=== PATIENT | female | born 1985 | race Caucasian/White ===

== ENCOUNTER 2022-09-15 11:28 | Outpatient (CLI) | payer BC, SELFPAY ==
--- NOTE | ~2022-09-15 | XR_ITS ---
XR abdomen/kub 1V 09/15/2022 11:53 INDICATION: Change in bowel habits passed 6 months. TECHNIQUE: KUB COMPARISON: None FINDINGS: Bowel gas pattern is normal. There is no evidence of free air, mass, organomegaly, ascites or obstruction. No abnormal calculi are seen. The bones appear intact. There is an IUD present in the pelvis. There are pelvic phleboliths. IMPRESSION: 1: No acute abdominal abnormality identified. Reviewed, dictated and finalized at location A. RTMENT COORDINATOR
== END 2022-09-15 11:29 | disposition home or self-care (01) ==
PROVIDERS: PCP Internal Medicine; Visit Provider Nurse Practitioner Family
DX: R19.4 Change in bowel habit (principal)
CPT/HCPCS: 74018

== ENCOUNTER 2022-09-24 17:24 | Outpatient (CLI) | payer BC, SELFPAY ==
[2022-09-24 17:46] LABS: Add Urine Microscopic? NO; Appearance Urine Clear (Clear); Bilirubin Urine Negative (Negative); Blood Urine Negative (Negative); Color Urine Yellow (Yellow); Glucose Urine UA Negative (Negative); Ketones Urine Negative (Negative); Leukocyte Esterase Ur Negative LEU/UL (NEGATIVE); Nitrate Urine Negative (Negative); Protein Urine Negative (Negative); Urobilinogen Urine 0.2 mg/dL (<2.0); pH Urine 5.5 (5.0-9.0)
== END 2022-09-24 17:25 | disposition home or self-care (01) ==
PROVIDERS: PCP Internal Medicine; Visit Provider Nurse Practitioner Family
DX: K92.89 Other specified diseases of the digestive system (principal)
CPT/HCPCS: 81003

== ENCOUNTER 2022-10-19 01:41 | Day surgery (SDC) | payer BC, SELFPAY ==
[2022-10-07 12:26] VITALS: BMI 25.2
[2022-10-19 07:27] VITALS: BP 117/65; PULSE 65; RESP 18; TEMP 36.2; O2SAT 99
[2022-10-19] MEDS: LACTATED RINGERS 1,000 ML 150 ML IV CONT (07:36)
--- NOTE | 2022-10-19 07:56 | P.PNAN_ITS ---
Anes - Initial Pre Proc Eval Procedure: Operation Date: 10/19/22 08:30 Proposed Procedures p Colonoscopy - Anjel Heck MD Date/Time: 10/19/22 07:56 Surgeon: Anjel Heck MD Pre Op Diagnosis: change in consistency of stools Patient Data Age: 37 Gender: F Height: 1.8 m Weight: 83.2 kg Last Vital Signs Temp 97.1 F L 10/19/22 07:27 Pulse 65 10/19/22 07:27 Resp 18 10/19/22 07:27 BP 117/65 10/19/22 07:27 Pulse Ox 99 10/19/22 07:27 O2 Del Method Room Air 10/19/22 07:27 Allergies Allergy/AdvReac Type Severity Reaction Status Date / Time Penicillins Allergy Unknown Hives Verified 10/19/22 07:26 Home Medications Medication Instructions Recorded Confirmed Type escitalopram oxalate 10 mg tablet 10 mg PO DAILY 09/15/22 10/07/22 History Patient hx anesthesia problems: none Family hx anesthesia problems: none Results Review: All pre-operative results and documents have been reviewed as part of the pre- operative evaluation. 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 Hx of dislocation of wrist Mucus in stool Surgical History Surgical History History of hip surgery Family History Family History Mother Patient's mother is in good health Father Patient's father is in good health Sibling Patient's sister is in good health Patient's brother is in good health Grandparent Cerebrovascular accident Family history of chronic obstructive pulmonary disease Family history unknown Family history of type 2 diabetes mellitus Social History Social History (Updated 09/15/22 @ 11:52 by KRZYSZTOF Ballard) Smoking status: Never smoker Second hand tobacco smoke exposure: No Alcohol intake: current Alcohol use details: social Substance use: never Substance use type: does not use Living arrangements: with family Spiritual care concerns: No Anes - Eval Final PreProcedure Day of Procedure 10/19/22 07:56 Patient weight: normal Heart: regular rate and rhythm Lungs: clear to auscultation Airway: Mallampati scale class II Neurological: alert and oriented Last oral intake: >/= 8 hours ASA classification: II Emergent: no Anesthetic plan: proceed Anesthesia type and monitoring: general GIVS and standard monitoring Results Review: All pre-operative results and documents have been reviewed as part of the pre- operative evaluation. Informed Consent: The patient's anesthetic plan and its attendant risks and benefits were discussed with the patient/family/POA. Questions were solicited and answers provided to the satisfaction of the patient/family/POA.
--- NOTE | 2022-10-19 08:34 | PM.HPGS ---
History of Present Illness History of Present Illness Consent: Risks, benefits, and alternatives have been discussed and questions answered. Patient agrees to proceed with procedure. Chief complaint: change in consistency of stools Narrative: Shelbie Hernandez is a 37 year old female with several months of loose stools and mucus, never had colonoscopy Review of Systems Constitutional: Constitutional: Denies headache(s) and Denies weakness Eyes: Eyes: Denies blurry vision ENT: Reports Normal hearing present, Denies headache(s) and Denies neck pain Cardiovascular: Cardiovascular: Denies chest pain and Denies dyspnea Respiratory: Respiratory: Denies dyspnea Gastrointestinal: Gastrointestinal: Reports no additional gastrointestinal complaints Genitourinary: Genitourinary: Denies dysuria Musculoskeletal: Musculoskeletal: Denies neck pain Integumentary/Breasts: Skin/Breast: Denies dry skin Neurologic: Reports Normal hearing present, Denies headache(s) and Denies weakness Psychiatric: Psychiatric: Denies anxiety Endocrine: Endocrine: Denies change in body appearance Hematologic/Lymphatic: Hematologic/Lymphatic: Denies easy bleeding Allergic/Immunologic: Allergic/Immunologic: Denies urticaria PMFSH Past Medical History Medical History (Updated 09/15/22 @ 11:43 by KRZYSZTOF Ballard) 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 Hx of dislocation of wrist Mucus in stool Surgical History Surgical History History of hip surgery Family History Family History Mother Patient's mother is in good health Father Patient's father is in good health Sibling Patient's sister is in good health Patient's brother is in good health Grandparent Cerebrovascular accident Family history of chronic obstructive pulmonary disease Family history unknown Family history of type 2 diabetes mellitus Social History Social History (Updated 09/15/22 @ 11:52 by KRZYSZTOF Ballard) Smoking status: Never smoker Second hand tobacco smoke exposure: No Alcohol intake: current Alcohol use details: social Substance use: never Substance use type: does not use Living arrangements: with family Spiritual care concerns: No Meds Home Medications and Allergies Home Medications Medication Instructions Recorded Confirmed Type escitalopram oxalate 10 mg tablet 10 mg PO DAILY 09/15/22 10/07/22 History Allergies Allergy/AdvReac Type Severity Reaction Status Date / Time Penicillins Allergy Unknown Hives Verified 10/19/22 07:26 Vital Signs Vital Signs - 24 hr 10/19/22 07:27 Temperature 97.1 F L Pulse Rate 65 Respiratory Rate 18 Blood Pressure 117/65 Pulse Oximetry 99 Oxygen Delivery Room Air Exam Const: General: comfortable and no acute distress HENMT: Face/Nose/Sinus: Normal nares present Eyes: General: appearance normal, both eyes and all related structures Neck: Neck: no JVD Resp: Auscultation: clear to auscultation bilaterally Cardio: Rate: regular rate Rhythm: regular rhythm GI: Inspection: non-distended GI Palp: Yes Soft to palpation Skin: General skin exam: normal color Neuro: General: gait normal Speech: normal speech Extrem: General: normal to inspection Psych: Mental Status: mental status grossly normal Assessment and Plan Assessment and plan (1) Mucus in stool: Code(s): R19.5 - Other fecal abnormalities Status: Acute Assessment and Plan: colonoscopy (2) Change in bowel habits: Code(s): R19.4 - Change in bowel habit Status: Acute
[2022-10-19 08:57] VITALS: BP 90/52; PULSE 63; RESP 18; O2SAT 100
[2022-10-19 09:07] VITALS: BP 103/64; PULSE 53; RESP 19; O2SAT 100
[2022-10-19 09:17] VITALS: BP 106/60; PULSE 51; RESP 22; O2SAT 100
== END 2022-10-19 09:25 | disposition home or self-care (01) ==
PROVIDERS: PCP Internal Medicine; Visit Provider Internal Medicine Gastroenterology
PROC: 0DJD8ZZ Inspection of Lower Intestinal Tract, Via Natural or Artificial Opening Endoscopic (ICD-10-PCS; CPT 45378; principal; 2022-10-19 08:30)
DX: R19.7 Diarrhea, unspecified (principal); K57.30 Diverticulosis of large intestine without perforation or abscess without bleeding
CPT/HCPCS: 45380; 88305; J2704; J7120

== ENCOUNTER 2024-04-13 16:05 | Emergency (ER) | payer BC, SELFPAY ==
[2024-04-13] VITALS (8 sets, daily range): BP systolic 117–136; BP diastolic 69–81; PULSE 57–85; RESP 14–18; TEMP 36.5–36.6; O2SAT 100
--- NOTE | ~2024-04-13 | CT_ITS ---
CT abdomen pelvis wo con Ordering provider: Liliam Hood History: 39 years Female with . low back pain, uti sxs . Comparison: None. Technique: CT abdomen and pelvis without IV and without oral contrast. Automated exposure control and iterative reconstruction technique were employed. The dose-length product was 493.63 mGy-cm. Findings: VISUALIZED LOWER CHEST: Dependent atelectatic changes. UPPER ABDOMINAL ORGANS: Liver: Normal. Gallbladder: Normal. Spleen: Cyst is seen in the spleen measuring 7 x 7.1 cm. Calcification seen in the wall. Abscess is l ess likely. Stomach/duodenum: Normal. Pancreas: Normal. Adrenals: Normal. Kidneys: Tiny stone in the left kidney lower pole. PELVIC ORGANS: The bladder is slightly underfilled with thickened wall. Uterus: Normal. BOWEL AND MESENTERY: Colon: No evidence of diverticulitis. Fecal material is seen in the colon suggestive of patient. No e vidence of appendicitis seen. Soft tissue density seen anterior to the sacrum which may be inflammatory and measures 1.3 x3.7 x 4.3 cm. Follow-up advised. Small Bowel: Normal. No obstruction. Peritoneum/mesentery: No free air or free fluid. No mesenteric lymphadenopathy. RETROPERITONEUM: Normal aorta. No retroperitoneal lymphadenopathy. MUSCULOSKELETAL: Superficial soft tissues: The superficial soft tissues are normal. Bones: Normal spine. Disc bulges are seen at the levels of L3-L4, L4-5 and L5 1. Sclerotic lesion in the left iliac bone is noted most likely a bone island IMPRESSION: 1. Large Splenic cyst. Follow-up advised. 2. Presacral soft tissue density which may be inflammatory versus hematoma versus lymphatic tissue.. Follow-up advised. 3. Constipation. 4. Slightly thickened wall of the urinary bladder. Clinical evaluation for cystitis advised. 5. Tiny stone in the left kidney lower pole. 6. Multilevel disc bulges. Reviewed, dictated and finalized at location A. IMPRESSION: 1. Large Splenic cyst. Follow-up advised. 2. Presacral soft tissue density which may be inflammatory versus hematoma nazanin cheyanne lymphatic tissue.. Follow-up advised. 3. Constipation. 4. Slightly thickened wall of the urinary bladder. Clinical evaluation for cys titis advised. 5. Tiny stone in the left kidney lower pole. 6. Multilevel disc bulges.
--- NOTE | 2024-04-13 16:57 | ED.FEMALEGU ---
HPI - Female Genitourinary General Chief complaint: Urogenital-Female <Liliam Hood PA-C - Last Filed: 04/13/24 17:03> Stated complaint: UTI symptoms, being treated currently <Liliam Hood PA-C - Last Filed: 04/13/24 17:03> Time Seen by Provider: 04/13/24 16:57 <BRIE Fraser Last Filed: 04/13/24 17:03> Focused HPI: patient is a 39-year-old female who presents the ED with report of UTI symptoms. Patient reports she was diagnosed with UTI per her primary care doctor and has been on ciprofloxacin 500 mg b.i.d. for the last 3.5 days. She reports the hematuria and dysuria has improved, but she is now having worsening pain throughout her lower back. Pain is worse on the right side. Reports lower abdominal discomfort. Reports nausea, denies vomiting, fevers. States she overall feels unwell and fatigued. GENERAL: Well-appearing, well-nourished, and in no acute distress. HEAD: Normocephalic, atraumatic. CHEST: Clear to auscultation. ?No respiratory distress. HEART: Regular rate and rhythm.? ABD: No significant tenderness. Mild tenderness to palpation throughout R CVA region. NEURO: ?Alert and oriented x3. Patient screened in triage and initial orders placed.? ?Additional care and disposition to be based upon?diagnostic testing and treatment. <Liliam Hood PA-C - Last Filed: 04/13/24 17:03> Source: patient <Liliam Hood PA-C - Last Filed: 04/13/24 17:03> Mode of arrival: ambulatory <Liliam Hood PA-C - Last Filed: 04/13/24 17:03> Limitations: no limitations <BRIE Fraser Last Filed: 04/13/24 17:03> History of Present Illness HPI Narrative: I agree with the assessment and documentation by Liliam Hood PA-C. <Ruhty Chin APRN - Last Filed: 04/13/24 23:50> Related Data Home medications: Home Medications Medication Instructions Recorded Confirmed escitalopram oxalate 10 mg tablet 10 mg PO DAILY 09/15/22 10/07/22 <BRIE Fraser Last Filed: 04/13/24 17:03> Allergies/Adverse reactions: Allergies Allergy/AdvReac Type Severity Reaction Status Date / Time Penicillins Allergy Unknown Hives Verified 04/13/24 16:06 <Liliam Hood PA-C - Last Filed: 04/13/24 17:03> Review of Systems Review of Systems: All systems reviewed & are unremarkable except as noted in HPI and below <Ruthy Chin APRN - Last Filed: 04/13/24 23:50> [facility] Past Medical History Medical History: Medical History 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 Hx of dislocation of wrist Mucus in stool <BRIE Fraser Last Filed: 04/13/24 17:03> Surgical History Surgical History: Surgical History History of hip surgery <BRIE Fraser Last Filed: 04/13/24 17:03> Family History Family History: Family History Mother Patient's mother is in good health Father Patient's father is in good health Sibling Patient's sister is in good health Patient's brother is in good health Grandparent Cerebrovascular accident Family history of chronic obstructive pulmonary disease Family history unknown Family history of type 2 diabetes mellitus <BRIE Fraser Last Filed: 04/13/24 17:03> Social History Social History: Social History Smoking status: Never smoker Second hand tobacco smoke exposure: No Alcohol intake: current Alcohol use details: social Substance use: never Substance use type: does not use Living arrangements: with family Spiritual care concerns: No <BRIE Fraser Last Filed: 04/13/24 17:03> Exam Narrative: GENERAL: Well-appearing, well-n
[2024-04-13 17:38] LABS: Add Urine Microscopic? YES; Appearance Urine Clear (Clear); Bacteria Urine None Seen /hpf; Bilirubin Urine Negative (Negative); Blood Urine Negative (Negative); Color Urine Yellow (Yellow); Glucose Urine UA Negative (Negative); Ketones Urine Negative (Negative); Leukocyte Esterase Ur Trace LEU/UL (Negative); Need Manual Microscopic Reviewed; Nitrate Urine Negative (Negative); Non Pathogenic Casts 0-2; Protein Urine Negative (Negative); RBC Urine 0-2 /hpf (0-2); Specific Grav Ur 1.003 (1.001-1.035); Squamous Epithelial Cell Urine None Seen /hpf (Few); Urobilinogen Urine 0.2 mg/dL (<2.0); WBC Urine 0-5 /hpf (0-3); pH Urine 5.5 (5.0-9.0)
[2024-04-13] MEDS: SODIUM CHLORIDE 0.9% IV 1,000 ML 999 ML IV CONT (17:44)
[2024-04-13 17:52] LABS: Basophils Percent Auto 0.4 % (0.2-1.2); Eosinophils Absolute Auto 0.1 K/mm3 (0-0.3); Eosinophils Percent Auto 1.6 % (0-4.4); Hematocrit 42.9 % (37.0-47.0); Hemoglobin 14.4 g/dL (12.0-15.0); Immature Granulocyte Absolute 0.02 K/mm3 (0.00-0.031); Immature Granulocyte Percent A 0.3 % (0-0.5); Lymphocytes Absolute Auto 1.78 K/mm3 (0.9-3.2); Lymphocytes Percent Auto 24.3 % (18.3-44.2); Mean Corpuscular HGB Conc 33.6 g/dl (32-36); Mean Corpuscular Hemoglobin 30.6 pg (26-34); Mean Corpuscular Volume 91.1 fl (80-100); Mean Platelet Volume 9.8 fl (7.4-10.4); Monocytes Absolute Auto 0.3 K/mm3 (0.1-0.6); Monocytes Percent Auto 4.2 % (2.6-8.5); Neutrophils Absolute Auto 5.1 K/mm3 (1.3-6.7); Neutrophils Percent Auto 69.2 % (45.5-73.1); Platelet Count Result 210 k/mm3 (150-375); Red Blood Count 4.71 M/mm3 (4.2-5.4); Red Cell Distribution Width 12.6 % (11.5-14.5); White Blood Count 7.3 K/mm3 (4.5-10.0)
[2024-04-13 18:04] LABS: Alanine Aminotransferase 27 U/L (6-35); Albumin Level 4.3 g/dL (3.5-5.1); Alkaline Phosphatase 73 U/L (38-126); Anion Gap 7 mmol/L (4-12); Aspartate Amino Transferase 47 U/L (14-36); Bilirubin,Total 0.2 mg/dL (0.2-1.3); Blood Urea Nitrogen 18 mg/dL (7-17); Carbon Dioxide 30 mmol/L (22-30); Chloride 99 mmol/L (98-107); Estimated CRCL calculation 83 ml/min; Estimated Glomerular Filt Rate > 60; Glucose 91 mg/dL (65-110); Potassium 3.8 mmol/L (3.4-5.0); Sodium 136 mmol/L (137-145)
== END 2024-04-14 00:12 | disposition home or self-care (01) ==
PROVIDERS: Physician Assistant; Emergency Provider Registered Nurse; PCP Internal Medicine
DX: D73.4 Cyst of spleen (principal); K59.00 Constipation, unspecified; M54.50 Low back pain, unspecified
CPT/HCPCS: 36415; 74176; 80053; 81001; 84443; 85025; 96360; 99284; J7030

== ENCOUNTER 2024-06-27 16:24 | Emergency (ER) | payer BC, SELFPAY ==
--- NOTE | ~2024-06-27 | US_ITS ---
EXAMINATION: US OB <= 14 weeks fetus DATE: 06/27/2024 18:39 INDICATION: Vaginal bleeding during 11 week TECHNIQUE: Real-time pelvic ultrasound utilizing both a transvaginal and transabdominal probe was pe rformed. The interpreting radiologist was not present for the study. COMPARISON: None. FINDINGS: The uterus measures 4.9 x 5.8 x 8.4 cm. There is an intrauterine gestational sac with single fetus. The crown rump length measures 2.7 cm, which correlates with an estimated gestational age of 9 weeks and 3 days which is discordant provided estimated gestational age of 11 weeks and 2 days. There is no evident heart on color or M-mode Doppler consistent with demise. The right ovary measures 4.4 x 1.1 x 2.0 cm. Vascular flow identified in the right ovary on color Dop pler. The left ovary is not visualized There is no free fluid in the pelvis. IMPRESSION: 1. Intrauterine gestational sac with single 2.7 cm fetus without evident heart motion consisten t with demise. Reviewed, dictated and finalized at location A. UTER TESTER IMPRESSION: 1. Intrauterine gestational sac with single 2.7 cm fetus without evident heart motion consistent with demise.
[2024-06-27 16:25] VITALS: BP 125/65; PULSE 67; RESP 18; TEMP 36.6; O2SAT 100
[2024-06-27 17:34] LABS: Basophils Percent Auto 0.4 % (0.2-1.2); Eosinophils Absolute Auto 0.1 K/mm3 (0-0.3); Eosinophils Percent Auto 1.8 % (0-4.4); Hematocrit 42.1 % (37.0-47.0); Immature Granulocyte Absolute 0.02 K/mm3 (0.00-0.031); Immature Granulocyte Percent A 0.3 % (0-0.5); Lymphocytes Absolute Auto 1.68 K/mm3 (0.9-3.2); Lymphocytes Percent Auto 23.7 % (18.3-44.2); Mean Corpuscular HGB Conc 33.3 g/dl (32-36); Mean Corpuscular Hemoglobin 30.4 pg (26-34); Mean Corpuscular Volume 91.5 fl (80-100); Monocytes Absolute Auto 0.3 K/mm3 (0.1-0.6); Monocytes Percent Auto 3.8 % (2.6-8.5); Platelet Count Result 192 k/mm3 (150-375); Red Cell Distribution Width 12.7 % (11.5-14.5); White Blood Count 7.1 K/mm3 (4.5-10.0)
--- NOTE | 2024-06-27 17:41 | PC.NURSE ---
unable to doppel FHR
[2024-06-27 17:43] LABS: Alanine Aminotransferase 21 U/L (6-35); Albumin Level 4.5 g/dL (3.5-5.1); Alkaline Phosphatase 63 U/L (38-126); Anion Gap 6 mmol/L (4-12); Aspartate Amino Transferase 29 U/L (14-36); Bilirubin,Total 0.3 mg/dL (0.2-1.3); Blood Urea Nitrogen 18 mg/dL (7-17); Calcium 8.9 mg/dL (8.4-10.2); Carbon Dioxide 27 mmol/L (22-30); Chloride 104 mmol/L (98-107); Estimated CRCL calculation 121 ml/min; Estimated Glomerular Filt Rate > 60; Glucose 90 mg/dL (65-110); Potassium 3.8 mmol/L (3.4-5.0); Sodium 137 mmol/L (137-145)
[2024-06-27 17:43] LABS: Prothrombin Time 13.9 Seconds (11.1-14.7)
[2024-06-27 17:44] LABS: Partial Thromboplastin Time 28.9 Seconds (22.3-36.8)
--- NOTE | 2024-06-27 18:37 | ED.PREGNANCY ---
HPI - General Chief complaint: Vaginal Bleeding Stated complaint: vaginal bleeding, cramping. 11 weeks Time Seen by Provider: 06/27/24 17:53 Source: patient Mode of arrival: ambulatory Limitations: no limitations History of Present Illness HPI Narrative: This is a 39-year-old female that presents to the emergency department for vaginal bleeding. She is currently about 11 weeks . Her OB is Dr. Moreno. She has had an ultrasound which showed intrauterine . She has had worsening bleeding and cramping since yesterday which prompted her to be seen. Related Data Home Medications Medication Instructions Recorded Confirmed escitalopram oxalate 10 mg tablet 10 mg PO DAILY 09/15/22 04/17/24 Allergies Allergy/AdvReac Type Severity Reaction Status Date / Time Penicillins Allergy Unknown Hives Verified 06/27/24 18:09 Review of Systems Review of Systems: CONSTITUTIONAL: Denies fever GASTROINTESTINAL: Reports pelvic cramping. 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 Hx of dislocation of wrist Mucus in stool Surgical History Surgical History History of hip surgery Family History Family History Mother Patient's mother is in good health Father Patient's father is in good health Sibling Patient's sister is in good health Patient's brother is in good health Grandparent Cerebrovascular accident Family history of chronic obstructive pulmonary disease Family history unknown Family history of type 2 diabetes mellitus Social History Social History Smoking status: Never smoker Second hand tobacco smoke exposure: No Alcohol intake: current Alcohol use details: social Substance use: never Substance use type: does not use Living arrangements: with family Spiritual care concerns: No Exam Narrative: GENERAL: Well-appearing, well-nourished, and in no acute distress. HEAD: Normocephalic, atraumatic. EYES: EOMI. CHEST: Clear to auscultation. No respiratory distress. No wheezes rales or rhonchi HEART: Regular rate and rhythm. No murmur heard. Normal peripheral pulses. EXTREMITIES: Normal range of motion. No edema. SKIN: Warm, dry, no rash. NEURO: No focal deficits. Alert and oriented x3. PSYCH: Normal mood and affect Course Course Emergency Course: Patient updated on her workup. She would like to wait and see how she progresses naturally Consultations Consultation #1: Spoke with Dr. Meeks about patient and workup reports patient may be given the option of Cytotec, waiting and seeing how she progresses, or getting scheduled for a D&C Date: 06/27/24 Vital Signs Vital signs: Vital Signs Temperature 97.9 F 06/27/24 16:25 Pulse Rate 67 06/27/24 16:25 Respiratory Rate 18 06/27/24 16:25 Blood Pressure 125/65 06/27/24 16:25 Pulse Oximetry 100 06/27/24 16:25 Oxygen Delivery Room Air 06/27/24 16:25 Temperature 97.9 F 06/27/24 16:25 Pulse Rate 67 06/27/24 16:25 Respiratory Rate 18 06/27/24 16:25 Blood Pressure 125/65 06/27/24 16:25 Pulse Oximetry 100 06/27/24 16:25 Oxygen Delivery Room Air 06/27/24 16:25 MDM - OB/Uterine Contractions MDM Narrative Medical decision making narrative: patient presents to the emergency department for bleeding in first-trimester . Reports she is about 11 weeks . She is afebrile and nontoxic appearing. Blood pressure is normal. Heart rate is not elevated. Hemoglobin is normal. Patient is B positive. Quantitative beta-hCG 24,853. feet ultrasound showing demise. Spoke with Dr. Meeks about patient and workup reports patient may be given the option of Cytotec, waiting and seeing how she progresses, or getting scheduled for a D&C. Patient updated on her workup. She would like to wait and see how she progresses naturally. She was given warnings to return to the ER Differential Diagnosis Differential diagnosis: Likely other (threatened miscarriage, miscarriage, subchorionic hemorrhage) Lab Data Attestation: I reviewed the patient's lab results. 06/27/24 17:26 06/27/24 17:26 Labs: Lab Results 06/27/24 06/27/24 Range/Units 17:26 17:27 WBC 7.1 (4.5-10.0) K/mm3 RBC 4.60 (4.2-5.4) M/mm3 Hgb 14.0 (12.0-15.0) g/dL Hct 42.1 (37.0-47.0) % MCV 91.5 (80-100) fl MCH 30.4 (26-34) pg MCHC 33.3 (32-36) g/dl RDW 12.7 (11.5-14.5) % Plt Count 192 (150-375) k/mm3 MPV 10.0 (7.4-10.4) fl Immature Gran % (Auto) 0.3 (0-0.5) % Neut % (Auto) 70.0 (45.5-73.1) % Lymph % (Auto) 23.7 (18.3-44.2) % [place] % (Auto) 3.8 (2.6-8.5) % Eos % (Auto) 1.8 (0-4.4) % Baso % (Auto) 0.4 (0.2-1.2) % Lymph # (Auto) 1.68 (0.9-3.2) K/mm3 [place] # (Auto) 0.3 (0.1-0.6) K/mm3 Eos # (Auto) 0.1 (0-0.3) K/mm3 Baso # (Auto) 0.0 (0.0-0.1) K/mm3 Abs Immat Gran (auto) 0.02 (0.00-0.031) K/mm3 Absolute Neuts (auto) 5.0 (1.3-6.7) K/mm3 Absolute Nucleated RBC 0.000 (0.0-0.012) K/mm3 Nucleated RBC % 0.0 (0.0-0.2) % PT 13.9 (11.1-14.7) Seconds INR 1.0 APTT 28.9 (22.3-36.8) Seconds Sodium 137 (137-145) mmol/L Potassium 3.8 (3.4-5.0) mmol/L Chloride 104 (98-107) mmol/L Carbon Dioxide 27 (22-30) mmol/L Anion Gap 6 (4-12) mmol/L BUN 18 H (7-17) mg/dL Creatinine 0.60 L (0.7-1.0) mg/dL Estim Creat Clear Calc 121 ml/min Estimated GFR > 60 (59 - ) Glucose 90 (65-110) mg/dL Calcium 8.9 (8.4-10.2) mg/dL Total Bilirubin 0.3 (0.2-1.3) mg/dL AST 29 (14-36) U/L ALT 21 (6-35) U/L Alkaline Phosphatase 63 (38-126) U/L Total Protein 7.0 (6.3-8.2) g/dL Albumin 4.5 (3.5-5.1) g/dL Beta HCG, Quant 32529.00 mIU/ML Blood Type B Positive Antibody Screen Negative Screen Not Reportable Baby's Blood Type Not Reportable Baby's DAINA Not Reportable Doses of RhIg Required 0 Imaging Data Radiologist's impression: ITS Impressions Ultrasound 06/27/24 18:58 IMPRESSION: 1. Intrauterine gestational sac with single 2.7 cm fetus without evident heart motion consistent with demise. Critical Care Time Critical Care Time Critical Care Time: No Discharge Plan Discharge Clinical Impression: Threatened miscarriage, demise Patient Disposition: Home, Self-Care Condition: Stable Instructions: Threatened Miscarriage (ED) Additional Instructions: Return to the ER if you experience fever, chest pain, shortness of breath, you are soaking through a pad/hour, lightheadedness, pass out, or any other symptoms that are concerning to you Remain well hydrated. Tylenol or Ibuprofen as needed for pain Follow up with your OB. Dr. Meeks is [employer] worker this weekend if you need anything Prescriptions: No Action escitalopram oxalate 10 mg tablet 10 mg PO DAILY Follow-up/Referrals: Valdez Moreno MD [Physician] - Cristal Rowe MD [Primary Care Provider] -
[2024-06-27 19:40] VITALS: BP 118/74; PULSE 68; RESP 14; O2SAT 99
== END 2024-06-27 19:50 | disposition home or self-care (01) ==
PROVIDERS: Emergency Medicine; Emergency Provider Physician Assistant; PCP Internal Medicine
DX: O02.1 Missed abortion (principal)
CPT/HCPCS: 36415; 76801; 80053; 84702; 85025; 85461; 85610; 85730; 86850; 86900; 86901; 99284

== ENCOUNTER 2024-07-04 03:10 | Day surgery (SDC) | payer BC, SELFPAY ==
[2024-07-03 14:25] VITALS: BMI 24.4
--- NOTE | 2024-07-03 14:31 | PC.NURSE ---
Report to the Outpatient Waiting Room, entrance under the green pavilion located off [facility], at time _0930_ on date _[id number]_. Planned Procedure Time: _1130_.? Time changes happen often and if your time is changed the preop area will call you the afternoon before. - You and your visitor will be asked to self-screen and do not enter if you have any COVID symptoms. Please call surgeon if you need to reschedule. - A mask is optional within the hospital at this time. Patients may have clear liquids (water, carbonated beverages, clear teas, apple juice) until 3 hours prior to surgery with a maximum of 20 ounces. - No food from midnight until time of surgery and no smoking. This includes no chewing gum, candy or mints. Take only the following medications with a SIP of water on the morning of surgery: __None____ DO NOT STOP ANY OF YOUR OTHER PRESCRIPTION MEDICATIONS PRIOR TO SURGERY EXCEPT THE FOLLOWING Medications to discontinue per physician ___None Date to take last dose Please no make-up, nail maori, hairspray, perfume, deodorant, or body powder the day of surgery.? No jewelry (including any body piercings) or valuables the day of surgery, leave them at home.? Please take a shower or bath the night before, or the morning of, surgery with an antibacterial soap.? Wear comfortable, loose fitting clothing.? - Jewelry must be removed prior to entering the operating room.? Rings and piercings that are not removed may be cut off. - The hospital will not accept responsibility for valuables.? - Please leave all valuables, including medications, at home the day of surgery. If you are going home after surgery, a licensed courier driver must drive you home.? - NO public transportation without another adult if you receive anesthesia. - We recommend that an adult stay with you for 24 hours following discharge. - We also recommend that you do not drive, make important decision, drink alcoholic beverages, or take any drugs that were not prescribed by your health care provider for at least 24 hours after your discharge time. Follow any additional instructions given to you from your surgeon. Telephone instructions given to _Kat__and asked if any additional questions and then verbalized understanding. Patient advised to call surgeon office or pre surgery nurse liaison [phone] if any additional questions.
[2024-07-04] MEDS: ACETAMINOPHEN 500 MG TABLET 1000 MG PO (10:15)
[2024-07-04] MEDS: LACTATED RINGERS 1,000 ML 30 ML IV CONT (10:15)
--- NOTE | 2024-07-04 10:27 | WPDHPUPDATE1 ---
History and Physical Update Update Date/Time: 07/04/24 10:27 History and Physical has been reviewed, including an updated exam of the patient. There are NO changes in the patient's condition. Risks, benefits, and alternatives have been discussed and questions answered. Patient agrees to proceed with procedure.
--- NOTE | 2024-07-04 10:48 | P.PNAN_ITS ---
Anes - Initial Pre Proc Eval Procedure: Operation Date: 07/04/24 11:30 Proposed Procedures p Suction Dilation and Curettage - Valdez Moreno MD Date/Time: 07/04/24 10:48 Surgeon: Valdez Moreno MD Pre Op Diagnosis: Missed Ab Patient Data Age: 39 Gender: F Height: 1.83 m Weight: 81.8 kg Allergies Allergy/AdvReac Type Severity Reaction Status Date / Time Penicillins Allergy Unknown Hives Verified 07/03/24 14:24 Home Medications Medication Instructions Recorded Confirmed Type No Home Medications 07/03/24 07/03/24 History Patient hx anesthesia problems: none Family hx anesthesia problems: none Results Review: All pre-operative results and documents have been reviewed as part of the pre- operative evaluation. [facility] Past Medical History Medical History 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 Hx of dislocation of wrist Mucus in stool Surgical History Surgical History History of hip surgery Family History Family History Mother Patient's mother is in good health Father Patient's father is in good health Sibling Patient's sister is in good health Patient's brother is in good health Grandparent Cerebrovascular accident Family history of chronic obstructive pulmonary disease Family history unknown Family history of type 2 diabetes mellitus Social History Social History Smoking status: Never smoker Second hand tobacco smoke exposure: No Alcohol intake: current Alcohol use details: social Substance use: never Substance use type: does not use Living arrangements: with family Spiritual care concerns: No Anes - Eval Final PreProcedure Day of Procedure 07/04/24 10:48 Patient weight: normal Heart: regular rate and rhythm Lungs: clear to auscultation Airway: Mallampati scale class II Neurological: alert and oriented Last oral intake: >/= 8 hours ASA classification: II Emergent: no Anesthetic plan: proceed Anesthesia type and monitoring: general GIVS and standard monitoring Results Review: All pre-operative results and documents have been reviewed as part of the pre- operative evaluation. Informed Consent: The patient's anesthetic plan and its attendant risks and benefits were discussed with the patient/family/POA. Questions were solicited and answers provided to the satisfaction of the patient/family/POA.
[2024-07-04 11:00] VITALS: BP 109/61; PULSE 60; RESP 14; TEMP 36.4; O2SAT 100
[2024-07-04] MEDS: LIDOCAINE HCL 1% LOCAL INJ 10 ML VIAL INFILTRATE (11:06)
--- NOTE | 2024-07-04 11:21 | W.PM.PROC2 ---
Procedure Note - Detailed Date of Procedure 07/04/24 Pre-op Diagnosis Incomplete Ab Post-op Diagnosis Same Procedure Performed Suction D&C Surgeon Valdez Moreno MD Anesthesia MAC Indications missed Findings normal-appearing vulva vagina and cervix to. Moderate amount of products conception within the uterus. 8 cm uterus Description of Procedure the patient was taken the operating room. She was prepped and draped in dorsal lithotomy position after induction of mac anesthesia. A speculum was placed in the vagina. Cervix grasped with tenaculum. The cervix was dilated to about 1 cm Using Sofia dilators. A 8. Nepali curved curette was used to perform suction D&C. The curette was introduced and vacuum was applied. The curette was removed over all surfaces of the intrauterine cavity multiple times. This was done until all the surfaces were clear and had the familiar grainy texture they can be felt through the instrument. A sharp curette was then used to curettage all the surfaces. The suction cup was then reapplied 1 more time to remove any debris. The instruments were removed. The speculum and tenaculum were removed. The patient tolerated the procedure well. She was taken recovery room stable condition. Estimated Blood Loss 50 Drains No Packing No Pathology Yes Complications No immediate complications Condition Stable Disposition PACU
[2024-07-04 11:25] VITALS: BP 86/42; PULSE 55; RESP 14; O2SAT 96
[2024-07-04 11:55] VITALS: BP 110/57; PULSE 53; RESP 16; O2SAT 100
[2024-07-04 12:25] VITALS: BP 103/61; PULSE 45
--- NOTE | 2024-07-04 12:58 | SUR.PHASEII ---
Patient meets discharge criteria. Patient is dressed and waiting for ride in room. Patient will be wheeled out upon the arrival of her ride.
== END 2024-07-04 13:20 | disposition home or self-care (01) ==
PROVIDERS: PCP Internal Medicine; Visit Provider Obstetrics & Gynecology
PROC: (CPT 59812; principal; 2024-07-04 11:30)
DX: O03.4 Incomplete spontaneous abortion without complication (principal)
CPT/HCPCS: 59812; 88305; A9270; J2003; J2250; J2704; J3010; J7120

== ENCOUNTER 2024-07-16 12:45 | Outpatient (CLI) | payer BC, SELFPAY ==
--- NOTE | ~2024-07-16 | CT_ITS ---
EXAMINATION: CT abdomen pelvis w con DATE: 07/16/2024 13:08 INDICATION: Cysto of spleen. TECHNIQUE: Computed tomography (CT) of the abdomen and pelvis was performed with 100 mL Omnipaque 350 intravenous contrast. Automated exposure control and iterative reconstruction technique were employe d. The dose-length product was 539.63 mGy-cm. COMPARISON: CT abdomen and pelvis 04/13/2024 FINDINGS: The visualized portions of the lung bases demonstrate mild atelectasis. No pleural effusion . The heart size is normal. No pericardial effusion. The liver and gallbladder are normal. There is a 7.3 cm cyst in the spleen. The pancreas, adrenal glands, and kidneys are normal. There are no dilate d loops of bowel. The appendix is normal. There are no pathologically enlarged lymph nodes. There is no free intraperitoneal fluid. Again seen is presacral fat stranding. There is mild lumbar and thorac ic spondylosis. IMPRESSION: 1. 7.3 cm benign cyst in the spleen. 2. Presacral fat stranding again seen, which may be edema, inflammation, or scarring. Reviewed, dictated and finalized at location A. [facility] IMPRESSION: 1. 7.3 cm benign cyst in the spleen. 2. Presacral fat stranding again seen, which may be edema, inflammation, or sca rring.
== END 2024-07-16 12:46 | disposition home or self-care (01) ==
LOC: MICIMG 12:45
PROVIDERS: PCP Internal Medicine; Visit Provider Surgery
DX: D73.4 Cyst of spleen (principal)
CPT/HCPCS: 74177; Q9967

== ENCOUNTER 2025-01-25 10:54 | Outpatient (CLI) | payer BC, SELFPAY ==
--- NOTE | ~2025-01-25 | MM_ITS ---
EXAMINATION: MM screening danay BI w wendy HISTORY: Screening mammogram TECHNIQUE: Craniocaudal and mediolateral oblique 3-D tomosynthesis images were obtained and synthetic 2-D images were generated. CAD analysis was submitted and interpreted. COMPARISON: No prior mammogram is available for comparison at this institution. BREAST PARENCHYMAL COMPOSITION:Dense: The breasts are heterogeneously dense, which may obscure small masses. FINDINGS: There are microcalcifications at the upper, outer right breast. No left breast microvascula r calcifications. No mass lesion or distortion seen in either breast. IMPRESSION: Upper, outer right breast microcalcifications. Spot magnification views are recommended for further e valuation. BI-RADS Category 0: Incomplete: Needs additional imaging evaluation. Reviewed, dictated and finalized at location . IMPRESSION: Upper, outer right breast microcalcifications. Spot magnification views are rec ommended for further evaluation. BI-RADS Category 0: Incomplete: Needs additional imaging evaluation.
== END 2025-01-25 10:55 | disposition home or self-care (01) ==
LOC: ANHIMG 10:56
PROVIDERS: Visit Provider Obstetrics & Gynecology
DX: Z12.31 Encounter for screening mammogram for malignant neoplasm of breast (principal); R92.8 Other abnormal and inconclusive findings on diagnostic imaging of breast
CPT/HCPCS: 77063; 77067